=== PATIENT | male | born 1990 | race Caucasian/White ===

== ENCOUNTER 2017-03-23 10:20 | Emergency (ER) | payer SELFPAY ==
[2017-03-23 10:34] VITALS: BP 156/60; BMI 28.0
--- NOTE | 2017-03-23 10:54 | DR.EXTPAIN ---
HPI - Time seen Time seen: 10:50 - PCP Primary Care Physician: NFD - Complaint/Symptoms Chief Complaint Doctor Comments: Admit to left elbow pain onset last night worse today. Quality sharp, severity moderate, duratin one day, modifying factor internal rotatin of the extremity. 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 NO DEFORMITY NOTED .. Self Treatment fo Chief Complaint: HOT WATER.. - Source History Provided: Patient - Mode of arrival Mode of Arrival: Ambulatory - Timing Onset of Chief Complaint: 03/22/17 PMH - PMH Past Medical History: No Past Surgical History: Yes Past Surgical History Comment: KNEE SURGERY . - Family History History of Family Medical Conditions: No - Social History Does patient currently use any type of tobacco product: Yes Have you used tobacco products in the last 12 months: Yes Type of Tobacco Use: Cigarettes How many years tobacco product used: 8 Does any household member use tobacco: No Alcohol Use: None Do you use any recreational Drugs:: No Lives With: Family Lives Where: Home - infectious screening In the last 2 months have you had wt loss of >10#?: NO Have you had fever, night sweats or hemotysis?: No Have you traveled outside the country in the last 6 months?: No Isolation: Standard ROS - Review of Systems Eyes: No Symptoms Reported ENTM: No Symptoms Reported Respiratoy: No Symptoms Reported Cardiovascular: No Symptoms Reported Gastrointestinal/Abdominal: No Symptoms Reported Genitourinary: No Symptoms Reported Neurological: No Symptoms Reported Musculoskeletal: Elbow (pain) Integumentary: No Symptoms Reported Hematologic/Lymphatic: No Symptoms Reported Endocrine: No Symptoms Reported Psychiatric: No Symptoms Reported All Other Systems: Reviewed and Negative PE - Vital Signs Vitals: Temperature 98.1 F Pulse Rate 86 Respiratory Rate 20 Blood Pressure 156/60 O2 Sat by Pulse Oximetry 96 - General Limitations: No Limitations General Appearance: Alert, In No Apparent Distress - Head Head Exam: Normal Inspection, Atraumatic - Eyes Eye exam: Normal Appearance, PERRL, EOMI - ENT ENT Exam: Normal Exam - Neck Neck Exam: Normal Inspection, Full ROM - Cardiovascular Cardiovascular Exam: Regular Rate, Normal Rhythm - Abdominal Exam Abdominal Exam: Normal Inspection, Normal Bowel Sounds Abdominal Tenderness: negative: RUQ, RLQ, LUQ, LLQ, Epigastrium, Suprapubic, Diffuse, Mild, Moderate, Severe, Other - Extremities Extremities Exam: Tenderness (elbow tenderness, no change in strength) - Lower Extremities Hip/Pelvis Exam: Normal Inspection, Full ROM Upper Leg Exam: Normal Inspection Knee Exam: Ecchymosis Lower Leg Exam: Normal Inspection Ankle Exam: Normal Inspection Foot/Toe Exam: Normal Inspection Neurovascular/Tendon Exam: Normal Capillary Refill Gait Exam: Observed and Normal - Back Back Exam: Normal Inspection, Full ROM - Neurological Neurological Exam: Alert, Oriented X3, CN II-XII Intact - Psychiatric Psychiatric Exam: Normal Affect - Skin Skin Exam: Warm, Dry, Normal Color ROR - Labs Reviewed Result Diagrams: 03/23/17 11:00 03/23/17 11:00 Laboratory: WBC 10.3 X10^3/uL (3.6-10.0) H 03/23/17 11:00 RBC 5.13 X10^6/uL (4.7-6.0) 03/23/17 11:00 Hgb 15.6 g/dL (13.5-18.0) 03/23/17 11:00 Hct 43.8 % (42.0-54.0) 03/23/17 11:00 MCV 85.4 fL (80.0-100.0) 03/23/17 11:00 MCH 30.4 pg (27.0-34.0) 03/23/17 11:00 MCHC 35.6 g/dL (33.0-35.0) H 03/23/17 11:00 RDW 13.1 % (11.6-16.5) 03/23/17 11:00 Plt Count 257 X10^3/uL (150.0-450.0) 03/23/17 11:00 MPV 8.7 fL (7.4-11.0) 03/23/17 11:00 Neut % 74.2 % (42.0-75.0) 03/23/17 11:00 Lymph % 17.7 % (21.0-51.0) L 03/23/17 11:00 Mccone % 5.1 % (0.0-13.0) 03/23/17 11:00 Eos % 1.9 % (0.9-2.9) 03/23/17 11:00 Baso % 1.1 % (0.2-1.0) H 03/23/17 11:00 Neut # 7.7 x10^3/uL (2.2-4.8) H 03/23/17 11:00 Lymph # 1.8 X10^3/uL (1.3-2.9) 03/23/17 11:00 Mccone # 0.5 x10^3/uL (0.3-0.8) 03/23/17 11:00 Eos # 0.2 x10^3/uL (0.0-0.2) 03/23/17 11:00 Baso # 0.1 X10^3/uL (0.0-0.1) 03/23/17 11:00 Absolute Nucleated RBC 0.1 /100WBC 03/23/17 11:00 Sodium 140 mmol/L (136-145) 03/23/17 11:00 Corrected Sodium TNP 03/23/17 11:00 Potassium 3.4 mmol/L (3.5-5.1) L 03/23/17 11:00 Chloride 108 mmol/L (98-107) H 03/23/17 11:00 Carbon Dioxide 23.6 mmol/L (21-32) 03/23/17 11:00 BUN 10 mg/dL (7-18) 03/23/17 11:00 Creatinine 0.93 mg/dL (0.70-1.30) 03/23/17 11:00 Est GFR (MDRD) Af Amer > 60 (>60) 03/23/17 11:00 Est GFR (MDRD) Non-Af > 60 (>60) 03/23/17 11:00 Glucose 94 mg/dL (65-99) 03/23/17 11:00 Calcium 8.9 mg/dL (8.5-10.1) 03/23/17 11:00 - Diagnosis Discharge Problem: Tendonitis of elbow, left - Discharge Plan Condition: Stable - Follow ups/Referrals Follow ups/Referrals: NFD,None [Primary Care Provider] - 3 days - Instructions
[2017-03-23 11:22] LABS: BASOPHILS # (AUTO) 0.1 X10^3/uL (0.0-0.1); BASOPHILS % (AUTO) 1.1 % (0.2-1.0); EOSINOPHILS # (AUTO) 0.2 x10^3/uL (0.0-0.2); EOSINOPHILS % (AUTO) 1.9 % (0.9-2.9); HEMATOCRIT 43.8 % (42.0-54.0); HEMOGLOBIN 15.6 g/dL (13.5-18.0); LYMPHOCYTES # (AUTO) 1.8 X10^3/uL (1.3-2.9); LYMPHOCYTES % (AUTO) 17.7 % (21.0-51.0); MEAN CORPUSCULAR HEMOGLOBIN 30.4 pg (27.0-34.0); MEAN CORPUSCULAR HGB CONC 35.6 g/dL (33.0-35.0); MEAN CORPUSCULAR VOLUME 85.4 fL (80.0-100.0); MEAN PLATELET VOLUME 8.7 fL (7.4-11.0); MONOCYTES # (AUTO) 0.5 x10^3/uL (0.3-0.8); MONOCYTES % (AUTO) 5.1 % (0.0-13.0); NEUTROPHILS # (AUTO) 7.7 x10^3/uL (2.2-4.8); NEUTROPHILS % (AUTO) 74.2 % (42.0-75.0); PLATELET COUNT 257 X10^3/uL (150.0-450.0); RED BLOOD COUNT 5.13 X10^6/uL (4.7-6.0); RED CELL DISTRIBUTION WIDTH 13.1 % (11.6-16.5); WHITE BLOOD COUNT 10.3 X10^3/uL (3.6-10.0)
[2017-03-23 11:33] LABS: BLOOD UREA NITROGEN 10 mg/dL (7-18); CALCIUM 8.9 mg/dL (8.5-10.1); CARBON DIOXIDE 23.6 mmol/L (21-32); CHLORIDE 108 mmol/L (98-107); CREATININE 0.93 mg/dL (0.70-1.30); SODIUM 140 mmol/L (136-145); eGFR BLACK RACES > 60 (>60); eGFR NON BLACK RACES > 60 (>60)
[2017-03-23] MEDS ORDERED: TORADOL 60 MG VIAL IM ONE (13:27)
[2017-03-23] MEDS ORDERED: TORADOL 60 MG VIAL ONE (13:28)
== END 2017-03-23 13:40 | disposition home or self-care (01) ==
LOC: ER 10:38
DX: M77.8 Other enthesopathies, not elsewhere classified (principal)
CPT/HCPCS: 36415; 73070; 80048; 85025; 96372; 99282; J1885